=== PATIENT | female | born 1975 | race Caucasian/White ===

== ENCOUNTER → 2024-04-10 09:26 | Outpatient (REF) | payer OTHER, SELFPAY | LOC: UCDH 09:26 | PROVIDERS: ATTENDING PHYSICIAN Emergency Medicine; FAMILY PHYSICIAN Family Medicine | DX: J98.9 Respiratory disorder, unspecified (principal) | CPT/HCPCS: 71046 ==

== ENCOUNTER → 2024-05-25 08:31 | Outpatient (REF) | payer OTHER, SELFPAY | LOC: RAD 08:31 | PROVIDERS: ATTENDING PHYSICIAN Family Medicine | DX: J18.9 Pneumonia, unspecified organism (principal) | CPT/HCPCS: 71046 ==